=== PATIENT | female | born 1980 | race Caucasian/White ===

== ENCOUNTER 2022-07-20 10:21 | Day surgery (SDC) | payer OTHER ==
[~2022-07-20 10:21] MED LIST: ATABEX EC CAPL1 EACH PO; Colace 100MG PO; Mylicon 125MG PO; OMEGA 3 FISH OI1 CAP PO; OXYC1TAB9 PO; PRENATE ADVANCE PO; PROGESTERONE200 MG PO; Protonix PO
[2022-07-20] MEDS ORDERED: IBU400 MG PO (15:56)
[2022-07-20] MEDS ORDERED: ZITHROMAX500 MG PO (15:56)
== END 2022-07-20 19:00 | disposition home or self-care (01) ==
LOC: CIR.AMB 10:21
PROVIDERS: ATTEND Obstetrics & Gynecology
DX: N93.8 Other specified abnormal uterine and vaginal bleeding (principal); I10 Essential (primary) hypertension; I47.1 Supraventricular tachycardia; Z20.822 Contact with and (suspected) exposure to COVID-19